=== PATIENT | female | born 1955 | race Caucasian/White ===

== ENCOUNTER 2017-11-04 21:13 | Emergency (ER) | payer BC ==
[2017-11-04] MEDS ORDERED: Bacitracin Oint 1 GM U/D Packet TOP ONE (22:26)
[2017-11-04] MEDS ORDERED: Diphtheria,Pertussis(Acell),Tetanus Vaccine 0.5 ML SDV IM ONE (22:26)
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
--- NOTE | 2017-11-05 08:50 | CR ---
Wrist 2V Lt CLINICAL HISTORY: Pain, trauma FINDINGS: There is no acute fracture or dislocation within the left wrist. There is some mild osteo phytic change at the first carpal metacarpal joint. There is some transverse sclerosis at the distal portion of the scaphoid. This may be overlap of bony margins or possibly old healed injury. Impression: Mild osteoarthritic changes Minimal scaphoid deformity may be related to old injury. If there is clinical suspicion for scaphoid fracture, additional views are recommended
== END 2017-11-04 23:55 | disposition home or self-care (01) ==
LOC: JP.ED 21:13
DX: S61.412A Laceration without foreign body of left hand, initial encounter (principal); Z23 Encounter for immunization; V89.2XXA Person injured in unspecified motor-vehicle accident, traffic, initial encounter
CPT/HCPCS: 12002; 73100-26-LT; 73100-LT; 90471; 90715; 99283-25